=== PATIENT | male | born 1995 | race Caucasian/White ===

== ENCOUNTER 2016-09-11 12:56 | Emergency (ER) | payer SELFPAY ==
--- NOTE | 2016-09-11 14:48 | DIAGNOSTIC IMAGING REPORT ---
PROCEDURE: XR CHEST 2 VIEW INDICATION: SHORTNESS OF BREATH TECHNIQUE: PA and lateral views. COMPARISON: None. FINDINGS: Lungs are clear. Heart and mediastinum are normal. Thorax is normal. IMPRESSION: 1. Negative chest.
--- NOTE | 2016-09-11 15:00 | ED NURSING NOTES ---
Clinical Report - Nurses [facility] [place] [address] 09/11/2016 13:00 Patient: MAYRA GORE V TRIAGE Triage time 13:36. Acuity: LEVEL 4. Chief Complaint: (Dizzy, SOB, Head Ache, Left Arm & Leg Tingling). Alert. No acute distress. --13:40 Vamsi Chacon R.N. 13:36 09/11/16. BP: 141/80. HR: 66. RR: 20. O2 saturation: 99%. Temp: 98.6 F. Pain level now 0/10. --13:40 Vamsi Chacon R.N. Weight: 68 kg stated. Height/Length: 70 inches. BMI: 21.5. --13:38 Vamsi Chacon R.N. Medications None. --13:37 Vamsi Chacon R.N. Allergies None. --13:37 Vamsi Chacon R.N. History ( Went to get patient from waiting area and could not find him). --13:16 Vamsi Chacon R.N. Onset. (Friday). --13:40 Vamsi Chacon R.N. 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 He does not have any history of breathing difficulty or smoking. Has not been painting indoors or exposed to fumes recently. States has had intermittent SOB, Headache associated with the SOB and tingling in left arm and leg when he is SOB, since Friday.). --14:10 Vamsi Chacon R.N. Interventions ID band on patient. --13:40 Vamsi Chacon R.N. PHYSICAL ASSESSMENT GENERAL / NEURO / PSYCH: Alert. Oriented X 4. Appears in no acute distress. RESPIRATORY: Respirations not labored. Chest nontender. Decreased breath sounds in the left lung. Breath sounds within normal limits. GI / : Abdomen soft. SKIN: Skin is warm and dry. --13:41 Vamsi Chacon R.N. NURSING PROGRESS NOTES Patient gowned. Two patient identifiers checked. Call light placed in reach. Bed placed in lowest position. --13:41 Vamsi Chacon R.N. DISPOSITION / DISCHARGE Departure time: 1508. Condition at departure: improved. No learning barriers present. Discharge instructions provided and reviewed with the patient and family. Reviewed medication(s) information. Prescription(s) given to the patient. Reviewed referral to family practice for followup. Verbalized understanding. Written instructions provided in Greek and Macedonian. The patient was discharged home. He left the Emergency Department ambulatory and via private vehicle. --15:13 Shagufta Rubio R.N. 15:12 09/11/16. BP: 128/74. HR: 68. RR: 18. O2 saturation: 98%. Pain level now: 0/10. --15:13 Shagufta Rubio R.N. Locked/Released at 09/16/2016 19:46 by Vamsi Chacon R.N.
--- NOTE | 2016-09-11 15:00 | ED CLINICAL REPORT ---
Clinical Report - Physicians/Mid Levels [facility] [address] [place] [address] 09/11/2016 13:00 Patient: MAYRA GORE V Time Seen: 1355; initial patient contact, initial documentation, patient care assumed. Arrived- By private vehicle. Historian- patient. HISTORY OF PRESENT ILLNESS Chief Complaint: DYSPNEA. This started about 3 days ago and is now gone. It was abrupt in onset and has been intermittent. No cough, sputum production, fever, sweating episodes or wheezing. No chest pain, anxiety or dizziness. He has had tingling of the right arm (mild) and left arm (mild). Similar symptoms previously: None. Recent medical care: Not recently seen/assessed. REVIEW OF SYSTEMS No sore throat, nasal discharge, sinus drainage, vomiting or abdominal pain. No diarrhea. All systems otherwise negative, except as recorded above. PAST HISTORY Negative. SOCIAL HISTORY Never smoker. No alcohol use or drug use. No recent travel. Is a local resident. FAMILY HISTORY Negative. ADDITIONAL NOTES The nursing notes have been reviewed with agreement regarding the chief complaint, HPI, ROS, PMH and patient medications and allergies. PHYSICAL EXAM Vital Signs: 09/11/2016 13:36 BP: 141/80. HR: 66. RR: 20. O2 saturation: 99%. Temp: 98.6 F. Have been reviewed as normal and appear to be correct. Appearance: Alert. No acute distress. Eyes: Pupils equal, round and reactive to light. Eyes normal inspection. ENT: Ears normal. Nose normal. Pharynx normal. Uvula midline. Neck: Normal inspection. No jugular venous distention. Neck supple. CVS: Normal heart rate and rhythm. Heart sounds normal. Pulses normal. Respiratory: No respiratory distress. Breath sounds normal. Back: Normal inspection. Skin: Skin warm and dry. Normal skin color. No rash. Normal skin turgor. Extremities: Extremities exhibit normal ROM. No lower extremity edema. Neuro: Oriented X 3. No motor deficit. No sensory deficit. LABS, X-RAYS, AND EKG Chest X-ray: Normal Chest X-Ray. (IMPRESSION: 1. Negative chest. Electronically Final signed by:Mian Dawn MD 09/11/2016 2:51:42 PM). PROGRESS AND PROCEDURES Patient counseled in person regarding the patient's stable condition and diagnosis. 14:57. Differential Diagnosis: Other possible considerations: allergies, pneumo, pneumonia, bronchitis, flu, viral illness, asthma, bronchospasm. Above considerations are based on history, physical exam and X-Ray data. Differential diagnosis was discussed with patient. Disposition: Discharged home in good and improved condition (15:00). Condition: good and stable. CLINICAL IMPRESSION Acute dyspnea INSTRUCTIONS Warnings: GENERAL WARNINGS: Return or contact your physician immediately if your condition worsens or changes unexpectedly, if not improving as expected, or if other problems arise. SPECIFICALLY, return if you develop chest pain, neck pain, jaw pain, shoulder pain, arm pain, back pain, fever, productive cough, difficulty breathing, excessive fatigue, a fluttering sensation in the chest, fainting or leg swelling. Prescription Medications: Albuterol HFA oral inhaler: inhale 1 to 2 puffs every four to six hours as needed for difficulty breathing. Dispense one (1) unit. No refills. Follow-up: Follow up with your doctor in about three days as needed. Call for an appointment. Summary of care provided to patient. Understanding of the discharge instructions verbalized by patient. (Electronically signed by Brisa Hurt A.R.N.P. 09/11/2016 22:24)
--- NOTE | 2016-09-11 15:00 | ED ORDER SUMMARY ---
..... Patient: MAYRA GORE V OrderSheet [facility] VisitID: [id number] [address] [place] [address] 21y, M Registration Date/Time: 09/11/2016 ORDER SHEET Weight: 68.0 kg (stated) Allergies: None GENERAL ORDERS: Chest 2V Urgent (14:05 09/11/2016 HBivens A.R.N.P.) (Ack 14:08 NHouse ER Tech1) (14:50 NHouse ER Tech1) MEDICATION ORDERS: IV FLUIDS: ORDER SHEET NOTES: [Electronically signed by Brisa HurtR.N.PAj (22:24 09/11/2016)] [Electronically signed by Vamsi Chacon R.N. (19:46 09/16/2016)] [Electronically locked/signed by Vamsi Chacon R.N. (19:46 09/16/2016)]
--- NOTE | 2016-09-11 15:00 | ED NURSING NOTES ---
Clinical Report - Nurses [facility] [place] [place] [address] 09/11/2016 13:00 Patient: MAYRA GORE V TRIAGE Triage time 13:36. Acuity: LEVEL 4. Chief Complaint: (Dizzy, SOB, Head Ache, Left Arm & Leg Tingling). Alert. No acute distress. --13:40 Vamsi Chacon R.N. 13:36 09/11/16. BP: 141/80. HR: 66. RR: 20. O2 saturation: 99%. Temp: 98.6 F. Pain level now 0/10. --13:40 Vamsi Chaocn R.N. Weight: 68 kg stated. Height/Length: 70 inches. BMI: 21.5. --13:38 Vamsi Chacon R.N. Medications None. --13:37 Vamsi Chacon R.N. Allergies None. --13:37 Vamsi Chacon R.N. History ( Went to get patient from waiting area and could not find him). --13:16 Vamsi Chacon R.N. Onset. (Friday). --13:40 Vamsi Chacon R.N. 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 He does not have any history of breathing difficulty or smoking. Has not been painting indoors or exposed to fumes recently. States has had intermittent SOB, Headache associated with the SOB and tingling in left arm and leg when he is SOB, since Friday.). --14:10 Vamsi Chacon R.N. Interventions ID band on patient. --13:40 Vamsi Chacon R.N. PHYSICAL ASSESSMENT GENERAL / NEURO / PSYCH: Alert. Oriented X 4. Appears in no acute distress. RESPIRATORY: Respirations not labored. Chest nontender. Decreased breath sounds in the left lung. Breath sounds within normal limits. GI / : Abdomen soft. SKIN: Skin is warm and dry. --13:41 Vamsi Chacon R.N. NURSING PROGRESS NOTES Patient gowned. Two patient identifiers checked. Call light placed in reach. Bed placed in lowest position. --13:41 Vamsi Chacon R.N. DISPOSITION / DISCHARGE Departure time: 1508. Condition at departure: improved. No learning barriers present. Discharge instructions provided and reviewed with the patient and family. Reviewed medication(s) information. Prescription(s) given to the patient. Reviewed referral to family practice for followup. Verbalized understanding. Written instructions provided in Portuguese and Maori. The patient was discharged home. He left the Emergency Department ambulatory and via private vehicle. --15:13 Shagufta Rubio R.N. 15:12 09/11/16. BP: 128/74. HR: 68. RR: 18. O2 saturation: 98%. Pain level now: 0/10. --15:13 Shagufta Rubio R.N. Locked/Released at 09/16/2016 19:46 by Vamsi Chacon R.N.
--- NOTE | 2016-09-11 15:00 | ED CLINICAL REPORT ---
Clinical Report - Physicians/Mid Levels [facility] [address] [address] 09/11/2016 13:00 Patient: MAYRA GORE V Time Seen: 1355; initial patient contact, initial documentation, patient care assumed. Arrived- By private vehicle. Historian- patient. HISTORY OF PRESENT ILLNESS Chief Complaint: DYSPNEA. This started about 3 days ago and is now gone. It was abrupt in onset and has been intermittent. No cough, sputum production, fever, sweating episodes or wheezing. No chest pain, anxiety or dizziness. He has had tingling of the right arm (mild) and left arm (mild). Similar symptoms previously: None. Recent medical care: Not recently seen/assessed. REVIEW OF SYSTEMS No sore throat, nasal discharge, sinus drainage, vomiting or abdominal pain. No diarrhea. All systems otherwise negative, except as recorded above. PAST HISTORY Negative. SOCIAL HISTORY Never smoker. No alcohol use or drug use. No recent travel. Is a local resident. FAMILY HISTORY Negative. ADDITIONAL NOTES The nursing notes have been reviewed with agreement regarding the chief complaint, HPI, ROS, PMH and patient medications and allergies. PHYSICAL EXAM Vital Signs: 09/11/2016 13:36 BP: 141/80. HR: 66. RR: 20. O2 saturation: 99%. Temp: 98.6 F. Have been reviewed as normal and appear to be correct. Appearance: Alert. No acute distress. Eyes: Pupils equal, round and reactive to light. Eyes normal inspection. ENT: Ears normal. Nose normal. Pharynx normal. Uvula midline. Neck: Normal inspection. No jugular venous distention. Neck supple. CVS: Normal heart rate and rhythm. Heart sounds normal. Pulses normal. Respiratory: No respiratory distress. Breath sounds normal. Back: Normal inspection. Skin: Skin warm and dry. Normal skin color. No rash. Normal skin turgor. Extremities: Extremities exhibit normal ROM. No lower extremity edema. Neuro: Oriented X 3. No motor deficit. No sensory deficit. LABS, X-RAYS, AND EKG Chest X-ray: Normal Chest X-Ray. (IMPRESSION: 1. Negative chest. Electronically Final signed by:Mian Dawn MD 09/11/2016 2:51:42 PM). PROGRESS AND PROCEDURES Patient counseled in person regarding the patient's stable condition and diagnosis. 14:57. Differential Diagnosis: Other possible considerations: allergies, pneumo, pneumonia, bronchitis, flu, viral illness, asthma, bronchospasm. Above considerations are based on history, physical exam and X-Ray data. Differential diagnosis was discussed with patient. Disposition: Discharged home in good and improved condition (15:00). Condition: good and stable. CLINICAL IMPRESSION Acute dyspnea INSTRUCTIONS Warnings: GENERAL WARNINGS: Return or contact your physician immediately if your condition worsens or changes unexpectedly, if not improving as expected, or if other problems arise. SPECIFICALLY, return if you develop chest pain, neck pain, jaw pain, shoulder pain, arm pain, back pain, fever, productive cough, difficulty breathing, excessive fatigue, a fluttering sensation in the chest, fainting or leg swelling. Prescription Medications: Albuterol HFA oral inhaler: inhale 1 to 2 puffs every four to six hours as needed for difficulty breathing. Dispense one (1) unit. No refills. Follow-up: Follow up with your doctor in about three days as needed. Call for an appointment. Summary of care provided to patient. Understanding of the discharge instructions verbalized by patient. (Electronically signed by Brisa Hurt A.R.N.P. 09/11/2016 22:24)
--- NOTE | 2016-09-11 15:00 | ED ORDER SUMMARY ---
..... Patient: MAYRA GORE V OrderSheet [facility] VisitID: [id number] [address] [place] [address] 21y, M Registration Date/Time: 09/11/2016 ORDER SHEET Weight: 68.0 kg (stated) Allergies: None GENERAL ORDERS: Chest 2V Urgent (14:05 09/11/2016 HBivens A.R.N.P.) (Ack 14:08 NHouse ER Tech1) (14:50 NHouse ER Tech1) MEDICATION ORDERS: IV FLUIDS: ORDER SHEET NOTES: [Electronically signed by Brisa HurtR.N.PAj (22:24 09/11/2016)] [Electronically signed by Vamsi Chacon R.N. (19:46 09/16/2016)] [Electronically locked/signed by Vamsi Chacon R.N. (19:46 09/16/2016)]
--- NOTE | 2016-09-16 19:46 | ED DISCHARGE INSTRUCTIONS ---
Patient: MAYRA GORE V General Instructions [facility] VisitID: [id number] [place] [address] 21y, M Registration Date/Time: 09/11/2016 Acute dyspnea INSTRUCTIONS Warnings: GENERAL WARNINGS: Return or contact your physician immediately if your condition worsens or changes unexpectedly, if not improving as expected, or if other problems arise. SPECIFICALLY, return if you develop chest pain, neck pain, jaw pain, shoulder pain, arm pain, back pain, fever, productive cough, difficulty breathing, excessive fatigue, a fluttering sensation in the chest, fainting or leg swelling. Prescription Medications: Albuterol HFA oral inhaler: inhale 1 to 2 puffs every four to six hours as needed for difficulty breathing. Dispense one (1) unit. No refills. Follow-up: Follow up with your doctor in about three days as needed. Call for an appointment. Summary of care provided to patient. Understanding of the discharge instructions verbalized by patient. ADDITIONAL INFORMATION Dyspnea (Shortness Of Breath) Shortness of Breath (also known as "Dyspnea") is the sense that you can't catch your breath or can't get enough air. Dyspnea can be caused by many different conditions such as: Acute asthma attack Worsening of emphysema (also called "COPD") -- a lung diseasethat is caused by smoking A mucus plug blocks a large air passage in the lung -- this can occur with emphysema or chronic bronchitis Congestive Heart Failure ("CHF") -- when a weak heart muscle allows excess fluid to collect inthe lungs Panic attacks, anxiety -- fear can cause rapid breathing ("hyperventilation") Pneumonia -- infection in the lung tissue Exposure to toxic fumes or smoke Pulmonary embolus (blood clot to the lung) Based on your visit today, the exact cause of your shortness of breath is not certain. Your tests do not show any of the serious causes of dyspnea. Sometimes, further testing is needed to find out if a serious problem exists. Therefore, it is important for you to watch for any new symptoms or worsening of your condition and follow up with your doctor as directed. Home Care: When your symptoms are better, resume your usual activities. If you smoke, you need to stop. Join a stop-smoking program or ask your doctor for help. Follow Up with your doctor or as advised by our staff. Get Prompt Medical Attention if any of the following occur: Increasing shortness of breath or wheezing Redness, pain or swelling in one leg Swelling in both legs or ankles Unexpected weight gain Chest, arm, shoulder, neck or upper back pain Dizziness, weakness or fainting Palpitations (the sense that your heart is fluttering, beating fast or hard) Fever of 100.4F (38C) or higher, or as directed by your healthcare provider Cough with dark colored or bloody sputum (mucus) Albuterol Sulfate Pressurized inhalation, suspension What is this medicine? ALBUTEROL (al BYOO ter ole) is a bronchodilator. It helps open up the airways in your lungs to make it easier to breathe. This medicine is used to treat and to prevent bronchospasm. How should I use this medicine? This medicine is for inhalation through the mouth. Follow the directions on your prescription label. Take your medicine at regular intervals. Do not use more often than directed. Make sure that you are using your inhaler correctly. Ask you doctor or health care provider if you have any questions. Talk to your ecommerce merchandising manager regarding the use of this medicine in children. Special care may be needed. What side effects may I notice from receiving this medicine? Side effects that you should report to your doctor or health care tech as soon as possible: allergic reactions like skin rash, itching or hives, swelling of the face, lips, or tongue breathing problems chest pain feeling faint or lightheaded, falls high blood pressure irregular heartbeat fever muscle cramps or weakness pain, tingling, numbness in the hands or feet vomiting Side effects that usually do not require medical attention (report to your doctor or health care tech if they continue or are bothersome): cough difficulty sleeping headache nervousness or trembling stomach upset stuffy or runny nose throat irritation unusual taste What may interact with this medicine? anti-infectives like chloroquine and pentamidine caffeine cisapride diuretics medicines for colds medicines for depression or for emotional or psychotic conditions medicines for weight loss including some herbal products methadone some antibiotics like clarithromycin, erythromycin, levofloxacin, and linezolid some heart medicines steroid hormones like dexamethasone, cortisone, hydrocortisone theophylline thyroid hormones What if I miss a dose? If you miss a dose, use it as soon as you can. If it is almost time for your next dose, use only that dose. Do not use double or extra doses. Where should I keep my medicine? Keep out of the reach of children. Store at room temperature between 15 and 30 degrees C (59 and 86 degrees F). The contents are under pressure and may burst when exposed to heat or flame. Do not freeze. This medicine does not work as well if it is too cold. Throw away any unused medicine after the expiration date. Inhalers need to be thrown away after the labeled number of puffs have been used or by the expiration date; whichever comes first. Ventolin HFA should be thrown away 12 months after removing from foil pouch. Check the instructions that come with your medicine. What should I tell my health care provider before I take this medicine? They need to know if you have any of the following conditions: diabetes heart disease or irregular heartbeat high blood pressure pheochromocytoma seizures thyroid disease an unusual or allergic reaction to albuterol, levalbuterol, sulfites, other medicines, foods, dyes, or preservatives or trying to get breast-feeding What should I watch for while using this medicine? Tell your doctor or health care tech if your symptoms do not improve. Do not use extra albuterol. If your asthma or bronchitis gets worse while you are using this medicine, call your doctor right away. If your mouth gets dry try chewing sugarless gum or sucking hard candy. Drink water as directed. You have been given the following additional information: Dyspnea Albuterol Sulfate Pressurized inhalation, suspension (Electronically signed by Brisa Hurt A.R.N.P. 09/11/2016 22:24)
--- NOTE | 2016-09-16 19:46 | ED MAR SUMMARY ---
..... Medication Administration Record [facility] [address] [place], [place] [id number] Patient: MAYRA GORE V Visit ID: [id number] 21y, M Weight: 68.0 kg Height/Length: 70 in BMI: 21.5 ALLERGIES: None
--- NOTE | 2016-09-16 19:46 | ED DISCHARGE INSTRUCTIONS ---
Patient: MAYRA GORE V General Instructions [facility] VisitID: [id number] [place] [address] 21y, M Registration Date/Time: 09/11/2016 Acute dyspnea INSTRUCTIONS Warnings: GENERAL WARNINGS: Return or contact your physician immediately if your condition worsens or changes unexpectedly, if not improving as expected, or if other problems arise. SPECIFICALLY, return if you develop chest pain, neck pain, jaw pain, shoulder pain, arm pain, back pain, fever, productive cough, difficulty breathing, excessive fatigue, a fluttering sensation in the chest, fainting or leg swelling. Prescription Medications: Albuterol HFA oral inhaler: inhale 1 to 2 puffs every four to six hours as needed for difficulty breathing. Dispense one (1) unit. No refills. Follow-up: Follow up with your doctor in about three days as needed. Call for an appointment. Summary of care provided to patient. Understanding of the discharge instructions verbalized by patient. ADDITIONAL INFORMATION Dyspnea (Shortness Of Breath) Shortness of Breath (also known as "Dyspnea") is the sense that you can't catch your breath or can't get enough air. Dyspnea can be caused by many different conditions such as: Acute asthma attack Worsening of emphysema (also called "COPD") -- a lung diseasethat is caused by smoking A mucus plug blocks a large air passage in the lung -- this can occur with emphysema or chronic bronchitis Congestive Heart Failure ("CHF") -- when a weak heart muscle allows excess fluid to collect inthe lungs Panic attacks, anxiety -- fear can cause rapid breathing ("hyperventilation") Pneumonia -- infection in the lung tissue Exposure to toxic fumes or smoke Pulmonary embolus (blood clot to the lung) Based on your visit today, the exact cause of your shortness of breath is not certain. Your tests do not show any of the serious causes of dyspnea. Sometimes, further testing is needed to find out if a serious problem exists. Therefore, it is important for you to watch for any new symptoms or worsening of your condition and follow up with your doctor as directed. Home Care: When your symptoms are better, resume your usual activities. If you smoke, you need to stop. Join a stop-smoking program or ask your doctor for help. Follow Up with your doctor or as advised by our staff. Get Prompt Medical Attention if any of the following occur: Increasing shortness of breath or wheezing Redness, pain or swelling in one leg Swelling in both legs or ankles Unexpected weight gain Chest, arm, shoulder, neck or upper back pain Dizziness, weakness or fainting Palpitations (the sense that your heart is fluttering, beating fast or hard) Fever of 100.4F (38C) or higher, or as directed by your healthcare provider Cough with dark colored or bloody sputum (mucus) Albuterol Sulfate Pressurized inhalation, suspension What is this medicine? ALBUTEROL (al BYOO ter ole) is a bronchodilator. It helps open up the airways in your lungs to make it easier to breathe. This medicine is used to treat and to prevent bronchospasm. How should I use this medicine? This medicine is for inhalation through the mouth. Follow the directions on your prescription label. Take your medicine at regular intervals. Do not use more often than directed. Make sure that you are using your inhaler correctly. Ask you doctor or health care provider if you have any questions. Talk to your center mgr regarding the use of this medicine in children. Special care may be needed. What side effects may I notice from receiving this medicine? Side effects that you should report to your doctor or health career services representative as soon as possible: allergic reactions like skin rash, itching or hives, swelling of the face, lips, or tongue breathing problems chest pain feeling faint or lightheaded, falls high blood pressure irregular heartbeat fever muscle cramps or weakness pain, tingling, numbness in the hands or feet vomiting Side effects that usually do not require medical attention (report to your doctor or health career services representative if they continue or are bothersome): cough difficulty sleeping headache nervousness or trembling stomach upset stuffy or runny nose throat irritation unusual taste What may interact with this medicine? anti-infectives like chloroquine and pentamidine caffeine cisapride diuretics medicines for colds medicines for depression or for emotional or psychotic conditions medicines for weight loss including some herbal products methadone some antibiotics like clarithromycin, erythromycin, levofloxacin, and linezolid some heart medicines steroid hormones like dexamethasone, cortisone, hydrocortisone theophylline thyroid hormones What if I miss a dose? If you miss a dose, use it as soon as you can. If it is almost time for your next dose, use only that dose. Do not use double or extra doses. Where should I keep my medicine? Keep out of the reach of children. Store at room temperature between 15 and 30 degrees C (59 and 86 degrees F). The contents are under pressure and may burst when exposed to heat or flame. Do not freeze. This medicine does not work as well if it is too cold. Throw away any unused medicine after the expiration date. Inhalers need to be thrown away after the labeled number of puffs have been used or by the expiration date; whichever comes first. Ventolin HFA should be thrown away 12 months after removing from foil pouch. Check the instructions that come with your medicine. What should I tell my health care provider before I take this medicine? They need to know if you have any of the following conditions: diabetes heart disease or irregular heartbeat high blood pressure pheochromocytoma seizures thyroid disease an unusual or allergic reaction to albuterol, levalbuterol, sulfites, other medicines, foods, dyes, or preservatives or trying to get breast-feeding What should I watch for while using this medicine? Tell your doctor or health career services representative if your symptoms do not improve. Do not use extra albuterol. If your asthma or bronchitis gets worse while you are using this medicine, call your doctor right away. If your mouth gets dry try chewing sugarless gum or sucking hard candy. Drink water as directed. You have been given the following additional information: Dyspnea Albuterol Sulfate Pressurized inhalation, suspension (Electronically signed by Brisa Hurt A.R.N.P. 09/11/2016 22:24)
--- NOTE | 2016-09-16 19:46 | ED MED RECONCILIATION SUMMARY ---
Patient: MAYRA GORE V Medication Reconciliation Report [facility] VisitID: [id number] [address] [place] [address] 21y, M Registration Date/Time: 09/11/2016 Weight: 68.0 kg Height/Length: 70 in. BMI: 21.5 ALLERGIES: None The patient's Home Medications are listed below: NONE. The source(s) of the original Home Medication information: Not obtained. The following Medications were given to the patient in the Emergency Department: None. The following Medications were prescribed to the patient: Albuterol HFA oral inhaler: inhale 1 to 2 puffs every four to six hours as needed for difficulty breathing. Dispense one (1) unit. No refills. -- Brisa Hurt A.R.N.P.
--- NOTE | 2016-09-16 19:46 | ED MAR SUMMARY ---
..... Medication Administration Record [facility] [address] [place], [place] [id number] Patient: MAYRA GORE V Visit ID: [id number] 21y, M Weight: 68.0 kg Height/Length: 70 in BMI: 21.5 ALLERGIES: None
--- NOTE | 2016-09-16 19:46 | ED MED RECONCILIATION SUMMARY ---
Patient: MAYRA GORE V Medication Reconciliation Report [facility] VisitID: [id number] [address] [place] [address] 21y, M Registration Date/Time: 09/11/2016 Weight: 68.0 kg Height/Length: 70 in. BMI: 21.5 ALLERGIES: None The patient's Home Medications are listed below: NONE. The source(s) of the original Home Medication information: Not obtained. The following Medications were given to the patient in the Emergency Department: None. The following Medications were prescribed to the patient: Albuterol HFA oral inhaler: inhale 1 to 2 puffs every four to six hours as needed for difficulty breathing. Dispense one (1) unit. No refills. -- Brisa Hurt A.R.N.P.
== END 2016-09-11 15:08 | disposition home or self-care (01) ==
LOC: ED SRH 12:56
DX: R06.00 Dyspnea, unspecified (principal)